=== PATIENT | female | born 1940 | race Caucasian/White ===

== ENCOUNTER → 2018-02-06 06:48 | Day surgery (SDC) | payer MEDICARE, OTHER ==
[~2018-02-06 06:48] MED LIST: Acetaminophen TAB* 325 MG ONE; Buffered Lidocaine 0.9% SYRIN* 5 ML/SYR SYRINGE INTRADERM ONE; DiMENhydriNATE IV* 50 MG/ML VIAL IV PUSH PRN; Famotidine IV* 10 MG/ML 2 ML (20 mg) ONE; HYDROcodone/ACETAMIN 5-325 MG* 1 TAB PO PRN; Ketorolac INJ* 30 MG/ML 1 ML VIAL ONE; Lidocaine 2% PF * 5 ML VIAL ONE; Lidocaine 2% PF* 10 ML AMP ONE; Midazolam* 1 MG/ML 2 ML VIAL (2 MG) ONE; Naloxone* 0.4 MG/ML 1 ML VIAL IV PRN; Ondansetron INJ* 2 MG/ML VIAL ONE; PROCHLORPERAZINE INJ 5 MG/ML 2 ML VIAL IV PRN; Propofol* 10 MG/ML 20 ML BTL ONE; ceFAZolin 2 GM PREMIX in ORs 2 GM/50 ML BAG IVPB ONE; fentaNYL* 50 MCG/ML 2 ML VIAL (100 MCG VIAL) IV PRN; fentaNYL* 50 MCG/ML 2 ML VIAL (100 MCG VIAL) ONE
[2018-02-06] MEDS: Acetaminophen TAB* 325 MG PO ONE ×2 (08:41→08:54)
[2018-02-06 11:38] VITALS: BP 163/79
--- NOTE | 2018-02-07 04:12 | OP ---
DATE OF OPERATION: 02/06/18 - [facility] DATE OF : 44 ATTENDING SURGEON: Lei Amaro MD CONTENT STRATEGIST: Laurie Powers PA-C. PRE-OP DIAGNOSIS: Left hallux valgus deformity. POST-OP DIAGNOSIS: Left hallux valgus deformity. OPERATIVE PROCEDURE: Left hallux valgus repair, modified Weiner, and tight rope. DESCRIPTION OF PROCEDURE: The patient was taken to the operating room where a longitudinal incision was made on the dorsal aspect of the first and second webspace. Through this incision, we were able to expose the distal portion of the second metatarsal, but also the adductor tendon which was released away from the lateral border of the sesamoid as well as performing a longitudinal dorsal capsulotomy at the sesamoid articulation with the metatarsal. Medially, we made a straight medial incision longitudinally for the medial eminence with a dorsal plantar flap raised to protect the joint and the dorsal plantar nerve. We resected the medial eminence. There appeared to be cheesy white material, which was possibly tophaceous. This was sent to pathology as well as the medial eminence. We then passed a small tight rope from the first and the second metatarsal tightening this down, correcting the IM angle. The capsule was then repaired medially with a 0-Vicryl suture imbricating and subcutaneous tissue closure and nylon for the skin and a compression dressing was applied. [id number] #: [id number] MTDD
== END | disposition home or self-care (01) ==
LOC: OR 06:48
PROVIDERS: ATTEND Orthopaedic Surgery
DX: M20.12 Hallux valgus (acquired), left foot (principal); M1A.9XX1 Chronic gout, unspecified, with tophus (tophi); I10 Essential (primary) hypertension; E03.9 Hypothyroidism, unspecified; Z79.82 Long term (current) use of aspirin; Z79.899 Other long term (current) drug therapy; Z87.891 Personal history of nicotine dependence
CPT/HCPCS: 76000; 88304; 88311; A9270-GY; C1713; J0690; J1885; J2001; J2250; J2405; J2704; J3010